=== PATIENT | female | born 1985 | race Caucasian/White ===

== ENCOUNTER 2018-03-13 22:15 | Emergency (ER) | payer SELFPAY ==
[2018-03-13 22:22] VITALS: BP 121/86
[2018-03-13] MEDS ORDERED: TDAP ADULT 0.5 ML INJ (BOOSTRIX) IM ONE (22:42)
--- NOTE | 2018-03-13 22:44 | EDPHY ---
H & P Stated Complaint: L index finger lac, cut on "martini glass" Time Seen by Provider: 03/13/18 22:31 HPI/ROS: Chief Complaint: Finger laceration HPI: 32-year-old woman sustained a laceration to her left index finger when she tried to catch a falling martini glass which then broke in her hand. Last tetanus shot she believes was in 2007. Denies any other injuries. Sensations intact. ROS: 10 point Review of Systems is negative except as noted in the HPI. PMH: Denies Social History: No smoking, occasional alcohol, no recreational drug use Family History: non-contributory Physical Exam: General: Awake, alert, no acute distress Left hand: Patient has a 1 cm laceration on the ulnar aspect of the middle phalanx of her left 2nd finger. It does not cross the joint line. She has full flexion and extension of the distal and middle phalanx. Sensations intact medially and laterally. Capillary refills less than 2 sec. Skin: No rash - Personal History LMP (Females 10-55): 8-14 Days Ago Current Tetanus Diphtheria and Acellular Pertussis (TDAP): Yes Tetanus Vaccine Date: 2007 - Medical/Surgical History Hx Asthma: No Hx Chronic Respiratory Disease: No Hx Diabetes: No Hx Cardiac Disease: No Hx Renal Disease: No Hx Cirrhosis: No Hx Alcoholism: No Hx HIV/AIDS: No Hx Splenectomy or Spleen Trauma: No Other PMH: migraines - Social History Smoking Status: Never smoked Constitutional: Initial Vital Signs Temperature (C) 36.7 C 03/13/18 22:19 Heart Rate 67 03/13/18 22:19 Respiratory Rate 20 03/13/18 22:19 Blood Pressure 121/86 H 03/13/18 22:19 O2 Sat (%) 97 03/13/18 22:19 O2 Delivery Mode Room Air Allergies/Adverse Reactions: Penicillins Allergy (Verified 03/13/18 22:19) Home Medications: Medication Instructions Recorded Venlafaxine HCl 02/15/15 Medical Decision Making Procedures: Procedure: Digital nerve block, indication is digit anesthesia for procedure. Patient was prepped with chlorhexidine Skin prep. 0.5% bupivacaine was infiltrated in the medial in lateral aspects for with a dorsal approach at the base of the proximal phalanx with blockage of both dorsal and volar nerves. Total of 1 mL was infiltrated. There were no complications. Procedure was performed by myself. Procedure: Laceration repair. Verbal consent was obtained from the patient. The 1 cm laceration on the left index finger was anesthetized the with a digital nerve block. The wound was irrigated, draped and explored to its base with a gloved finger. There were no deep structures involved. No foreign body noted. No tendon injury was identified. The wound was repaired with 5, 5-0 Ethilon simple interrupted sutures. The wound repair was uncomplicated. The procedure was performed by myself. - Data Points Medications Given: Discontinued Medications Diphtheria/Tetanus/Acell Pertussis (Boostrix) 0.5 ml IM .ONCE ONE Stop: 03/13/18 22:43 Last Admin: 03/13/18 22:51 Dose: 0.5 ml Departure - Departure Disposition: Home, Routine, Self-Care Clinical Impression: Laceration Condition: Good Instructions: Diphtheria/Acellular Pertussis/Tetanus Booster Vaccine (By injection), Care For Your Stitches (ED), Finger Laceration (ED) Additional Instructions: Sutures need to be removed in 10 days, you may return to the emergency department or follow up with primary care physician. Return to the emergency department for increasing pain, redness, discharge from the wound, fevers, or any other concerns. Referrals: NONE *PRIMARY CARE P,. [Primary Care Provider] - As per Instructions
== END 2018-03-13 23:22 | disposition home or self-care (01) ==
PROC: 0HQGXZZ Repair Left Hand Skin, External Approach (ICD-10-PCS; principal; 2018-03-13)
DX: S61.211A Laceration without foreign body of left index finger without damage to nail, initial encounter (principal); Z23 Encounter for immunization; W25.XXXA Contact with sharp glass, initial encounter; Y99.8 Other external cause status; Y93.89 Activity, other specified